=== PATIENT | female | born 1990 | race Two or more races ===

== ENCOUNTER 2018-08-12 20:42 | Emergency (ER) | payer BC ==
[~2018-08-12] VITALS: Ht 162.6 cm; Wt 82.0 kg
[2018-08-12 22:35] LABS: CLARITY URINE CLOUDY (CLEAR); COLOR URINE DARK YELLOW (YELLOW); KETONES URINE TRACE (NEGATIVE); LEUKOCYTE ESTERASE URINE TRACE (NEGATIVE); NITRITE URINE NEGATIVE (NEGATIVE); OCCULT BLOOD URINE NEGATIVE (NEGATIVE); PH URINE 6.5 (4.5-8.0); PROTEIN URINE NEGATIVE (NEGATIVE); SPECIFIC GRAVITY URINE 1.035 (1.005-1.030)
[2018-08-12 23:58] LABS: BASOPHILS % 0.5 % (0.0-2.0); EOSINOPHILS % 1.5 % (0.0-5.0); HEMATOCRIT. 40.5 % (36.0-48.0); HEMOGLOBIN. 13.3 g/dL (12.0-16.0); LYMPHOCYTES % 17.2 % (20.0-50.0); MEAN CORPUSCULAR HEMOGLOBIN 28.2 pg (28.0-32.0); MEAN CORPUSCULAR VOLUME 86.2 fL (81.0-99.0); MONOCYTES % 9.7 % (2.0-8.0); NEUTROPHILS % 71.1 % (40.0-76.0); PLATELET 309 x1000/uL (130-400); RED CELL DISTRIBUTION WIDTH 13.9 % (11.6-14.6)
[2018-08-13 00:05] LABS: CHLORIDE 106 mEq/L (98-107)
[2018-08-13] MEDS ORDERED: ONDANSETRON HCL 4MG/2ML INJ IV ONE (00:30)
[2018-08-13] MEDS ORDERED: SODIUM CHLORIDE 0.9% 1,000 ML IV ONE (00:30)
[2018-08-13 01:39] VITALS: BP 100/79
== END 2018-08-13 01:40 | disposition home or self-care (01) ==
LOC: ER 20:42
DX: K52.9 Noninfective gastroenteritis and colitis, unspecified (principal); J45.909 Unspecified asthma, uncomplicated; F12.10 Cannabis abuse, uncomplicated
CPT/HCPCS: 36415; 80053; 81003; 81025; 83690; 85025; 96361; 96374; 99283; J2405; J7030; Z7610